=== PATIENT | female | born 1945 | race Two or more races ===

== ENCOUNTER 2018-07-21 19:41 | Emergency (ER) | payer MEDICAID, MEDICARE, OTHER ==
[~2018-07-21] VITALS: Ht 160 cm; Wt 45.4 kg
[2018-07-21 19:45] VITALS: BP 158/85
--- NOTE | 2018-07-21 19:45 | NUR ---
ED Nurse Note: pt brought in by RA [facility] due to SOB from [facility]. pt was on high sating at 95% per ems and was give 5 mg of albuterol pt tolerated well. iv access has been established pt blood sent down to lab.
--- NOTE | 2018-07-21 19:46 | NUR ---
ED Nurse Note: bruise on right knewe noted
[2018-07-21] MEDS ORDERED: Solu-MEDROL 125mg Inj IVP ONE (20:00)
[2018-07-21] MEDS: Ipratropium 0.02% Inh Soln 2.5ml UD HHN SCH ×3 (20:05→20:28)
[2018-07-21] MEDS: Albuterol ud Inhalation HHN SCH ×3 (20:05→20:28)
[2018-07-21 20:07] LABS: HEMATOCRIT 30.9 % (37.0-47.0); HEMOGLOBIN 10.7 G/DL (12.0-16.0); MEAN CORPUSCULAR VOLUME 92 FL (80-99); PLATELET COUNT 208 K/UL (150-450); RED BLOOD COUNT 3.37 M/UL (4.20-5.40); WHITE BLOOD COUNT 12.2 K/UL (4.8-10.8)
[2018-07-21 20:08] LABS: BASOPHILS % (AUTO) 0.6 % (0.0-2.0); EOSINOPHILS % (AUTO) 0.1 % (0.0-3.0); LYMPHOCYTES % (AUTO) 3.5 % (20.0-45.0); MONOCYTES % (AUTO) 4.9 % (1.0-10.0); NEUTROPHILS % (AUTO) 90.9 % (45.0-75.0)
[2018-07-21 20:14] LABS: ANION GAP 7 mmol/L (5-15); BLOOD UREA NITROGEN 29 mg/dL (7-18); CALCIUM 8.9 MG/DL (8.5-10.1); CARBON DIOXIDE 31 MMOL/L (21-32); CHLORIDE 99 MMOL/L (98-107); CREATININE 0.8 MG/DL (0.55-1.30); POTASSIUM 3.7 MMOL/L (3.5-5.1); SODIUM 137 MMOL/L (136-145)
[2018-07-21 20:31] LABS: ALANINE AMINOTRANSFERASE 118 U/L (12-78); ALBUMIN 2.3 G/DL (3.4-5.0); ALBUMIN/GLOBULIN RATIO 0.5 (1.0-2.7); ALKALINE PHOSPHATASE 364 U/L (46-116); ASPARTATE AMINO TRANSFERASE 133 U/L (15-37); BILIRUBIN,TOTAL 0.8 MG/DL (0.2-1.0); CKMB 0.7 NG/ML (0.0-3.6); CREATINE KINASE 61 U/L (26-308)
[2018-07-21 20:54] LABS: APPEARANCE,URINE CLOUDY; BILIRUBIN, URINE NEGATIVE (NEGATIVE); COLOR,URINE PALE YELLOW; GLUCOSE, URINE (UA) 3+ (NEGATIVE); KETONES,URINE NEGATIVE (NEGATIVE); LEUKOCYTE ESTERASE ,URINE 3+ (NEGATIVE); NITRITE,URINE NEGATIVE (NEGATIVE); PH,URINE 6.5 (4.5-8.0); PROTEIN,URINE 3+ (NEGATIVE); UROBILINOGEN,URINE NORMAL MG/DL (0.0-1.0)
[2018-07-21] MEDS ORDERED: COLACE100 MG ORAL (21:11)
[2018-07-21] MEDS ORDERED: ATORVASTATIN CA20 MG ORAL (21:11)
[2018-07-21] MEDS ORDERED: FUROSEMIDE20 M1 ORAL (21:11)
[2018-07-21] MEDS ORDERED: LACTULOSE20 GM/301 ORAL (21:11)
[2018-07-21] MEDS ORDERED: ASPIRIN EC325 MG ORAL (21:11)
[2018-07-21] MEDS ORDERED: METOPROLOL ER PO (21:20)
[2018-07-21] MEDS ORDERED: MAGNESIUM CITR100 G1 PO (21:20)
[2018-07-21] MEDS ORDERED: LOVENOX10 MG SUBQ (21:20)
[2018-07-21] MEDS ORDERED: LISINOPRIL5 MG ORAL (21:20)
[2018-07-21] MEDS ORDERED: NORCO 5-325 TA1 EACH ORAL (21:26)
[2018-07-21] MEDS ORDERED: ACETAMINOPHEN325 M1 ORAL (21:26)
[2018-07-21] MEDS ORDERED: SENNA PO (21:26)
[2018-07-21 21:28] VITALS: BP 123/59
--- NOTE | 2018-07-21 22:05 | NUR ---
ED Nurse Note: redness noticed in sacral regions pt was turned left lateral to relieve pressure.
--- NOTE | 2018-07-21 22:41 | NUR ---
ED Nurse Note: pt urinated and was cleaned. new gown and sheets given
--- NOTE | 2018-07-21 23:54 | Emergency Room Report ---
History of Present Illness General Chief Complaint: Dyspnea/Respdistress Source: Medical Record Present Illness HPI 73-year-old female presents ED for evaluation. Brought in by EMS from senior living facility. Reportedly hypoxic today with shortness of breath. O2 sats in the 80s. Started on breathing treatments by EMS. O2 sat somewhat improved. Still wheezing. No reported fevers or chills. No reported chest pain. Unable to provide any additional history at this time. No other aggravating relieving factors. No other associated symptoms Allergies: Coded Allergies: No Known Allergies (Unverified , 07/21/18) Patient History Past Medical History: HTN Past Surgical History: none Pertinent Family History: none Social History: Denies: smoking, alcohol use, drug use Now: No Immunizations: UTD Reviewed Nursing Documentation: PMH: Agreed; PSxH: Agreed Nursing Documentation-PMH Hx Cardiac Problems: Yes - High Cholesterol; Rabdo Hx Hypertension: Yes Hx Neurological Problems: Yes - Degenerative Didease of Nervous System, Unspecified. Review of Systems All Other Systems: negative except mentioned in HPI Physical Exam Vital Signs Date Time Temp Pulse Resp B/P (MAP) Pulse Ox O2 Delivery O2 Flow Rate FiO2 07/21/18 19:34 120 32 95 Non-Rebreather 15.0 07/21/18 19:45 101.5 158/85 07/21/18 20:05 100 Sp02 EP Interpretation: reviewed, normal General Appearance: alert, GCS 15, non-toxic, mild distress, lethargic Head: normocephalic, atraumatic Eyes: bilateral eye normal inspection, bilateral eye PERRL ENT: hearing grossly normal, normal pharynx, no angioedema, normal voice Neck: full range of motion, supple/symm/no masses Respiratory: chest non-tender, crackles, speaking full sentences, wheezing Cardiovascular #1: regular rate, rhythm, no edema Cardiovascular #2: 2+ carotid (R), 2+ carotid (L), 2+ radial (R), 2+ radial (L) , 2+ dorsalis pedis (R), 2+ dorsalis pedis (L) Gastrointestinal: normal bowel sounds, non tender, soft, non-distended, no guarding, no rebound Rectal: deferred Genitourinary: normal inspection, no CVA tenderness Musculoskeletal: back normal, gait/station normal, normal range of motion, non- tender Neurologic: other - nonverbal Psychiatric: other - nonverbal Reflexes: 3+ bicep (R), 3+ bicep (L), 3+ tricep (R), 3+ tricep (L), 3+ knee (R) , 3+ knee (L) Skin: normal color, no rash, warm/dry, well hydrated Lymphatic: no adenopathy Medical Decision Making Diagnostic Impression: Primary Impression: CHF exacerbation Qualified Codes: I50.9 - Heart failure, unspecified Additional Impressions: Pneumonia Qualified Codes: J18.1 - Lobar pneumonia, unspecified organism Dyspnea Qualified Codes: R06.00 - Dyspnea, unspecified UTI (urinary tract infection) Qualified Codes: N39.0 - Urinary tract infection, site not specified ER Course Hospital Course 73-year-old F presenting to ED with respiratory distress, wheezing, hypoxia Differential diagnoses include: Pneumonia, CHF exacerbation, pneumothorax, fluid overload Clinical course Patient placed on stretcher. 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 After initial history and physical, I ordered nebulizer treatments. I ordered labs, IV fluids, EKG, chest x-ray, blood cultures, UA. Labs -leukocytosis noted, hemoglobin/hematocrit stable, Glucose > 200, trop 0.025, BNP > 15,000. UA + bacteria ABG - no acidosis, no hypercapnia. hypoxia EKG - sinus tachycardia, no acute ischemic changes interpreted by me CXR - R lower lobe infiltrate Lasix given. Antibiotics given. Sats improved. Because of insurance patient will be transferred I feel this is a highly complex case requiring extensive working including EKG/ Rhythm strip, Xray/CT/US, Blood/urine lab work, repeat exams while in ED, and administration of strong opiates/narcotics for pain control, admission to hospital or close patient follow up. Diagnosis - CHF exacerbation, dyspnea, UTI, pneumonia Transferred in serious condition Labs Test 07/21/18 19:40 07/21/18 20:12 07/21/18 20:21 White Blood Count 12.2 K/UL (4.8-10.8) Red Blood Count 3.37 M/UL (4.20-5.40) Hemoglobin 10.7 G/DL (12.0-16.0) Hematocrit 30.9 % (37.0-47.0) Mean Corpuscular Volume 92 FL (80-99) Mean Corpuscular Hemoglobin 31.7 PG (27.0-31.0) Mean Corpuscular Hemoglobin Concent 34.6 G/DL (32.0-36.0) Red Cell Distribution Width 11.0 % (11.6-14.8) Platelet Count 208 K/UL (150-450) Mean Platelet Volume 5.5 FL (6.5-10.1) Neutrophils (%) (Auto) 90.9 % (45.0-75.0) Lymphocytes (%) (Auto) 3.5 % (20.0-45.0) Monocytes (%) (Auto) 4.9 % (1.0-10.0) Eosinophils (%) (Auto) 0.1 % (0.0-3.0) Basophils (%) (Auto) 0.6 % (0.0-2.0) Sodium Level 137 MMOL/L (136-145) Potassium Level 3.7 MMOL/L (3.5-5.1) Chloride Level 99 MMOL/L (98-107) Carbon Dioxide Level 31 MMOL/L (21-32) Anion Gap 7 mmol/L (5-15) Blood Urea Nitrogen 29 mg/dL (7-18) Creatinine 0.8 MG/DL (0.55-1.30) Estimat Glomerular Filtration Rate mL/min (>60) Glucose Level 284 MG/DL (74-106) Lactic Acid Level 1.30 mmol/L (0.4-2.0) Calcium Level 8.9 MG/DL (8.5-10.1) Total Bilirubin 0.8 MG/DL (0.2-1.0) Aspartate Amino Transf (AST/SGOT) 133 U/L (15-37) Alanine Aminotransferase (ALT/SGPT) 118 U/L (12-78) Alkaline Phosphatase 364 U/L (46-116) Total Creatine Kinase 61 U/L (26-308) Creatine Kinase MB 0.7 NG/ML (0.0-3.6) Creatine Kinase MB Relative Index 1.1 Troponin I 0.025 ng/mL (0.000-0.056) Pro-B-Type Natriuretic Peptide 29403 pg/mL (0-125) Total Protein 6.7 G/DL (6.4-8.2) Albumin 2.3 G/DL (3.4-5.0) Globulin 4.4 g/dL Albumin/Globulin Ratio 0.5 (1.0-2.7) Arterial Blood pH 7.438 (7.350-7.450) Arterial Blood Partial Pressure CO2 45.2 mmHg (35.0-45.0) Arterial Blood Partial Pressure O2 69.1 mmHg (75.0-100.0) Arterial Blood HCO3 29.9 mmol/L (22.0-26.0) Arterial Blood Oxygen Saturation 92.5 % (95-100) Arterial Blood Base Excess 5 (-2-2) Alejandro Test Positive Urine Color Pale yellow Urine Appearance Cloudy Urine pH 6.5 (4.5-8.0) Urine Specific Anderson 1.010 (1.005-1.035) Urine Protein 3+ (NEGATIVE) Urine Glucose (UA) 3+ (NEGATIVE) Urine Ketones Negative (NEGATIVE) Urine Blood 4+ (NEGATIVE) Urine Nitrite Negative (NEGATIVE) Urine Bilirubin Negative (NEGATIVE) Urine Urobilinogen Normal MG/DL (0.0-1.0) Urine Leukocyte Esterase 3+ (NEGATIVE) Urine RBC 0-2 /HPF (0 - 2) Urine WBC Tntc /HPF (0 - 2) Urine Squamous Epithelial Cells Few /LPF (NONE/OCC) Urine Bacteria Many /HPF (NONE) EKG Diagnostic Results Rate: tachycardiac Rhythm: NSR ST Segments: no acute changes ASA given to the pt in ED: No Rhythm Strip Diag. Results EP Interpretation: yes Rhythm: NSR, no PVC's, no ectopy Chest X-Ray Diagnostic Results Chest X-Ray Diagnostic Results : Chest X-Ray Ordered: Yes # of Views/Limited/Complete: 1 View Indication: Shortness of Breath EP Interpretation: Yes Interpretation: no pneumothorax, other - RLL infiltrate Impression: Other - pneumonia Electronically Signed by: Electronically signed by Duke Vievros MD Last Vital Signs Date Time Temp Pulse Resp B/P (MAP) Pulse Ox O2 Delivery O2 Flow Rate FiO2 07/21/18 21:28 99.1 106 18 123/59 100 Non-Rebreather 15.0 100 Status: improved Disposition: XFER SHT-TRM HOSP Condition: Serious Referrals: NON PHYSICIAN (PCP) Duke Viveros MD July 21, 2018 23:54
[2018-07-22 00:07] VITALS: BP 121/72
--- NOTE | 2018-07-22 00:22 | NUR ---
ED Nurse Note: pt urinated urinated in bed was changed, pt accidently pulled out iv site.
--- NOTE | 2018-07-22 00:23 | NUR ---
ED Nurse Note: pt repositioned in semi durán. pt tolerating room air. pt vss stable.
--- NOTE | 2018-07-22 00:43 | NUR ---
ED Nurse Note: attempted to give telephone report to [facility], no one asnwered. Will reattempt in 15 min
--- NOTE | 2018-07-22 00:59 | NUR ---
ED Nurse Note: reattempted to give telephone report to [facility]. was unable to complete
--- NOTE | 2018-07-22 01:11 | NUR ---
ED Nurse Note: 3rd attempt at telephone report to [facility], unable to give report.
--- NOTE | 2018-07-22 01:34 | NUR ---
ED Nurse Note: confirmed phone number reattempted to give telephone report, informed charge nurse of sitation. will await further orders
--- NOTE | 2018-07-22 02:00 | NUR ---
ED Nurse Note: telephone report given to tiago hernandez at [facility]. [facility] [address] at bedside
--- NOTE | 2018-07-22 02:05 | NUR ---
ED Nurse Note: pt left with [facility] [id number], pt belonings x 1 shirt, taken with pt. pt is aox2, skin intact, pt shows no signs of distress. pt is tolerating room air, sating at 98% RR18. pt vss at the moment.
[2018-07-22 02:07] VITALS: BP 114/70
--- NOTE | 2018-07-22 11:14 | Diagnostic Imaging Report ---
Indication: Dyspnea Comparison: None A single view chest radiograph was obtained. Findings: Pulmonary vascular congestion suspected with interstitial densities likely edema. Heart size is borderline. There is a probable left pleural effusion. The bones are osteopenic. IMPRESSION: Suspected CHF/interstitial edema. Left pleural effusion suspected.
--- NOTE | 2018-07-22 20:22 | Cardiology Report ---
APPROVED REPORT EKG Measurement Heart [id number] NC 100P45 [id number] Sinus tachycardia with short NC T wave abnormality, consider anterior ischemia Abnormal ECG
== END 2018-07-22 02:05 | disposition short-term general hospital (02) ==
LOC: EDBD 19:41 → EMR 21:26
DX: I50.9 Heart failure, unspecified (principal); J18.1 Lobar pneumonia, unspecified organism; R06.00 Dyspnea, unspecified; N39.0 Urinary tract infection, site not specified; R06.03 Acute respiratory distress; E78.00 Pure hypercholesterolemia, unspecified; I11.0 Hypertensive heart disease with heart failure; R09.02 Hypoxemia; D72.829 Elevated white blood cell count, unspecified; R00.0 Tachycardia, unspecified
CPT/HCPCS: 36415; 36600; 71045; 80053; 81003; 82550; 82553; 82803; 83605; 83880; 84484; 85025; 87040; 87081; 87086; 87181; 93005; 94640; 94664; 96361; 96365; 96375; 99285; J1940; J1956; J2930; J7040